=== PATIENT | female | born 1995 | race American Indian/Alaskan Native ===

== ENCOUNTER 2016-08-30 00:35 | Outpatient (CLI) | payer MEDICAID ==
[2016-08-30] MEDS ORDERED: LACTATED RINGERS 500 ML IV ONE (01:12)
[2016-08-30 01:46] LABS: Bacteria,Urine 1+ /HPF (Negative); Bilirubin,Urine NEG (Negative); Blood,Urine MOD (Negative); Ketones,Urine TR mg/dL (Negative); Leukocyte Esterase,Urine MOD (Negative); Mucus,Urine 3+ /HPF; Nitrite,Urine NEG (Negative); Urobilinogen,Urine < 2.0 mg/dL (<2.0)
[2016-08-30] MEDS ORDERED: ceFAZolin 2 GM in NACL 0.9% 100 ML IV ONE (02:15)
--- NOTE | 2016-08-30 02:39 | Ultrasound Report ---
FINAL REPORT EXAM: US OB \T\gt; = 14 WEEKS FETUS HISTORY: ptl COMPARISON: None available. TECHNIQUE: Several real-time grayscale and color Doppler images were obtained. FINDINGS: Single live IUP. Estimated gestational age 26 weeks 5 days. Estimated delivery date December 01, 2016. Estimated weight 902 grams. heart rate 165 beats per minute. position cephalic. Placenta location posterior. No placenta previa. The cervix is closed and measures 2.8 centimeters in length. Normal NINA 21.7 centimeters. Visualized heart, stomach, urinary bladder, kidneys, are grossly unremarkable. Three-vessel umbilical cord with abdominal insertion. BPD 6.9 centimeters 27 weeks 4 days. Head circumference 25.1 centimeters 27 weeks 2 days. Abdominal circumference 21.8 centimeters 26 weeks 2 days. Femoral length 4.7 centimeters 25 weeks 4 days. IMPRESSION: Single live IUP. Estimated gestational age 26 weeks 5 days. Estimated delivery date December 01, 2016. No or placental abnormality demonstrated.
[2016-08-30 03:12] VITALS: BP 130/65
== END 2016-08-30 03:15 | disposition home or self-care (01) ==
LOC: TRG 00:35
PROVIDERS: ATTEND Obstetrics & Gynecology
DX: O42.92 Full-term premature rupture of membranes, unspecified as to length of time between rupture and onset of labor (principal); Z3A.26 26 weeks gestation of pregnancy
CPT/HCPCS: 76805; 81001; 96360; 96365; J0690; J7120

== ENCOUNTER 2016-11-30 17:29 | Outpatient (CLI) | payer MEDICAID ==
[2016-11-30 18:03] VITALS: BP 120/75
== END 2016-11-30 18:52 | disposition home or self-care (01) ==
LOC: TRG 17:29
PROVIDERS: ATTEND Obstetrics & Gynecology
DX: O47.1 False labor at or after 37 completed weeks of gestation (principal); Z3A.37 37 weeks gestation of pregnancy

== ENCOUNTER 2016-12-15 13:48 | Inpatient (IN) | payer MEDICAID ==
[2016-12-15] MEDS ORDERED: LACTATED RINGERS 1,000 ML IV ONE (15:26)
[2016-12-15] MEDS ORDERED: PHENERGAN PO PRN (17:31)
[2016-12-15] MEDS ORDERED: STADOL IV PRN (17:31)
[2016-12-15] MEDS ORDERED: XYLOCAINE 2% INFILTRATI ONE (17:31)
[2016-12-15] MEDS ORDERED: BRETHINE SUB-Q PRN (17:31)
[2016-12-15] MEDS ORDERED: NARCAN 0.4 MG/1 ML IV PRN (17:31)
[2016-12-15] MEDS ORDERED: ZOFRAN IV PRN (17:31)
[2016-12-15] MEDS ORDERED: BRETHINE IVP PRN (17:31)
[2016-12-15] MEDS ORDERED: MINERAL OIL PO PRN (17:31)
[2016-12-15] MEDS ORDERED: ePHEDrine SULFATE IV PRN (17:31)
--- NOTE | 2016-12-15 17:39 | History and Physical Report ---
History of Present Illness Date of examination: 12/15/16 Date of admission: 12/15/16 13:49 Chief complaint: Pain and Leaking fluid History of present illness: Pt is a 21yo BF EDC 12/15/16; EGA 40 0/7 weeks presents to [facility] L&D complaining of decreased movement and leaking fluid since. BPP 12/10. NINA 10.5 She received care at [facility] since 19 weeks and course has been uncomplicated except for STD's ( Chlamydia and Trichomonas - both treated with Negative CAMERON's). records are available and GBS is Negative. Past History Past Medical History: no pertinent history Past Surgical History: no surgical history [employer] History: chlamydia (treated 07/23/16 with Negative CAMERON) Social history: no significant social history, single - Obstetrical History Expected Date of Delivery: 12/15/16 Actual Gestation: 40 Week(s) 0 Day(s) : 1 Medications and Allergies Allergies Allergy/AdvReac Type Severity Reaction Status Date / Time No Known Allergies Allergy Verified 08/30/16 01:14 Home Medications Medication Instructions Recorded Confirmed Last Taken Type Ferrous Sulfate [Feosol] 325 mg PO QDAY 08/30/16 08/30/16 08/29/16 16:00 History 1 Vit No.130/Iron/FA 1 tab PO DAILY 08/30/16 08/30/16 08/29/16 11:00 History [ Tablet] 1 Review of Systems All systems: negative - Vital Signs Vital signs: Vital Signs Pulse Pulse Ox 94 H 99 12/15/16 14:00 12/15/16 14:00 Temp Pulse Resp BP Pulse Ox 70 133/80 99 12/15/16 16:54 12/15/16 16:54 12/15/16 14:10 - Physical Exam Breasts: Positive: deferred Cardiovascular: Regular rate Lungs: Positive: Clear to auscultation Abdomen: Positive: normal appearance Genitourinary (Female): Positive: normal external genitalia Vagina: Positive: normal moisture Uterus: Positive: enlarged Extremities: Positive: normal - Obstetrical FHR: category 2 Uterine Contraction Monitor Mode: External Cervical Dilatation: 1.5 Cervical Effacement Percentage: 60 station: -3 Uterine Contraction Pattern: Irregular Uterine Tone Measurement Phase: Contraction Uterine Contraction Intensity: Mild Results All other labs normal. Ultrasound: report reviewed ([facility] /; NINA 10.5) Assessment and Plan - Patient Problems (1) 40 weeks gestation of Onset Date: 12/15/16 Current Visit: Yes Status: Acute Plan to address problem: A: IUP @ 40 0/7 weeks Non-reassuring surveillance P: Admit to L&D for pitocin induction of labor
[2016-12-15] MEDS: LACTATED RINGERS 1,000 ML IV SCH (18:00)
[2016-12-15] MEDS ORDERED: PITOCin/NS 20 UNIT/1000ML DRIP 20 UNITS/1,000 ML BAG IV SCH (18:00)
[2016-12-15] MEDS ORDERED: PITOCin/NS 30 UNIT/500ML 30 UNITS/500 ML BAG IV SCH ×2 (18:00)
[2016-12-15 19:49] LABS: Hematocrit 36.2 % (30.3-42.9); Hemoglobin 11.8 gm/dl (10.1-14.3); Mean Corpuscular HGB Conc 33 % (30-34); Mean Corpuscular Hemoglobin 32 pg (28-32); Mean Corpuscular Volume 97 fl (79-97); Platelet Count 248 K/mm3 (140-440); Red Blood Count 3.75 M/mm3 (3.65-5.03); Red Cell Distribution Width 14.7 % (13.2-15.2)
[2016-12-15] MEDS: SUBLIMAZE IV PRN ×2 (20:05→22:17)
[2016-12-16] MEDS: SUBLIMAZE IV PRN ×2 (00:25→02:52)
[2016-12-16] MEDS: LACTATED RINGERS 1,000 ML IV SCH ×2 (03:56→06:22)
[2016-12-16] MEDS ORDERED: ePHEDrine SULFATE ONE (04:32)
[2016-12-16] MEDS ORDERED: NARCAN 2 MG/2 ML IV PRN (05:13)
[2016-12-16] MEDS ORDERED: ePHEDrine SULFATE IV PRN (05:13)
--- NOTE | 2016-12-16 05:13 | Anesthesia Consultation ---
Anesthesia Consult and Med Hx Date of service: 12/16/16 - Airway Anesthetic Teeth Evaluation: Good ROM Head & Neck: Adequate Mental/Hyoid Distance: Adequate Mallampati Class: Class II Intubation Access Assessment: Good - Pulmonary Exam CTA: Yes - Cardiac Exam Cardiac Exam: No Murmur - Pre-Operative Health Status ASA Pre-Surgery Classification: ASA2 Proposed Anesthetic Plan: Epidural - Pulmonary Hx Asthma: Yes (childhood) COPD: No Hx Pneumonia: No - Cardiovascular System Hx Hypertension: No - Central Nervous System Hx Seizures: No Hx Psychiatric Problems: No - Endocrine Hx Renal Disease: No Hx End Stage Renal Disease: No Hx Hypothyroidism: No Hx Hyperthyroidism: No - Hematic Hx Anemia: Yes (Iron BID) Hx Sickle Cell Disease: No - Other Systems Hx Alcohol Use: No
[2016-12-16] MEDS ORDERED: fentaNYL-BUPIV 2 MCG/ML-0.125% 200 MCG/100 ML BAG EPIDURAL SCH (06:00)
--- NOTE | 2016-12-16 07:23 | Progress Note ---
Assessment and Plan A: 21 y/o at 40 wks -Cat 1 tracing at this time P: -IUPC and FSE placed -Will restart Pitocin in ~ 30 minutes -Will reassess options if patient's decelerations restart - Patient Problems (1) 40 weeks gestation of Onset Date: 12/15/16 Current Visit: Yes Status: Acute Subjective - Subjective Date of service: 12/16/16 Interval history: Patient seen and examined, stable. Currently category 1 with accelerations noted. However patient not on Pitocin. Cervical exam 2 Patient reports: loss of fluid (meconium-stained), contractions, no vaginal bleeding Objective - Vital Signs Vital Signs: Vital Signs - 12hr 12/15/16 12/15/16 12/15/16 19:24 19:29 19:34 Temperature Pulse Rate 86 82 92 H Respiratory Rate Blood Pressure O2 Sat by Pulse 98 98 97 Oximetry 12/15/16 12/15/16 12/15/16 19:39 19:44 19:49 Temperature Pulse Rate 87 81 83 Respiratory Rate Blood Pressure O2 Sat by Pulse 97 96 97 Oximetry 12/15/16 12/15/16 12/15/16 19:54 19:59 20:04 Temperature Pulse Rate 81 84 81 Respiratory Rate Blood Pressure O2 Sat by Pulse 98 98 98 Oximetry 12/15/16 12/15/16 12/15/16 20:05 20:09 20:14 Temperature Pulse Rate 87 87 Respiratory 18 Rate Blood Pressure O2 Sat by Pulse 96 94 Oximetry 12/15/16 12/15/16 12/15/16 20:15 20:19 20:24 Temperature Pulse Rate 87 90 92 H Respiratory Rate Blood Pressure O2 Sat by Pulse 94 96 96 Oximetry 12/15/16 12/15/16 12/15/16 20:29 20:34 20:39 Temperature Pulse Rate 98 H 86 81 Respiratory Rate Blood Pressure O2 Sat by Pulse 96 96 95 Oximetry 12/15/16 12/15/16 12/15/16 20:42 20:44 20:49 Temperature Pulse Rate 76 80 76 Respiratory Rate Blood Pressure O2 Sat by Pulse 94 96 95 Oximetry 12/15/16 12/15/16 12/15/16 20:54 20:59 21:04 Temperature Pulse Rate 76 75 72 Respiratory Rate Blood Pressure O2 Sat by Pulse 97 97 97 Oximetry 12/15/16 12/15/16 12/15/16 21:09 21:11 21:14 Temperature Pulse Rate 79 80 77 Respiratory Rate Blood Pressure O2 Sat by Pulse 95 94 98 Oximetry 12/15/16 12/15/16 12/15/16 21:19 21:24 21:29 Temperature Pulse Rate 107 H 79 81 Respiratory Rate Blood Pressure 141/94 O2 Sat by Pulse 99 99 99 Oximetry 12/15/16 12/15/16 12/15/16 21:34 21:39 21:44 Temperature Pulse Rate 85 77 74 Respiratory Rate Blood Pressure O2 Sat by Pulse 97 98 98 Oximetry 12/15/16 12/15/16 12/15/16 21:49 21:54 21:59 Temperature Pulse Rate 74 72 72 Respiratory Rate Blood Pressure O2 Sat by Pulse 100 99 99 Oximetry 12/15/16 12/15/16 12/15/16 22:04 22:09 22:19 Temperature Pulse Rate 75 72 72 Respiratory Rate Blood Pressure O2 Sat by Pulse 99 98 98 Oximetry 12/15/16 12/15/16 12/15/16 22:25 22:30 22:35 Temperature Pulse Rate 81 79 78 Respiratory Rate Blood Pressure O2 Sat by Pulse 94 97 95 Oximetry 12/15/16 12/15/16 12/15/16 22:40 23:30 23:32 Temperature Pulse Rate 76 74 76 Respiratory Rate Blood Pressure 142/82 O2 Sat by Pulse 96 98 Oximetry 12/15/16 12/15/16 12/15/16 23:34 23:35 23:40 Temperature 98.7 F Pulse Rate 74 74 79 Respiratory 18 Rate Blood Pressure 142/82 O2 Sat by Pulse 98 97 99 Oximetry 12/15/16 12/15/16 12/15/16 23:45 23:50 23:55 Temperature Pulse Rate 78 69 87 Respiratory Rate Blood Pressure O2 Sat by Pulse 98 98 87 Oximetry 12/16/16 12/16/16 12/16/16 00:00 00:05 00:10 Temperature Pulse Rate 95 H 76 74 Respiratory Rate Blood Pressure O2 Sat by Pulse 96 99 98 Oximetry 12/16/16 12/16/16 12/16/16 00:15 00:16 00:19 Temperature Pulse Rate 77 72 75 Respiratory Rate Blood Pressure O2 Sat by Pulse 98 94 98 Oximetry 12/16/16 12/16/16 12/16/16 00:25 00:28 00:30 Temperature Pulse Rate 78 83 78 Respiratory Rate Blood Pressure O2 Sat by Pulse 97 93 96 Oximetry 12/16/16 12/16/16 12/16/16 00:34 00:35 00:40 Temperature Pulse Rate 74 72 73 Respiratory Rate Blood Pressure O2 Sat by Pulse 94 94 92 Oximetry 12/16/16 12/16/16 12/16/16 00:45 00:50 00:55 Temperature Pulse Rate 73 73 72 Respiratory Rate Blood Pressure O2 Sat by Pulse 96 98 97 Oximetry 12/16/16 12/16/16 12/16/16 01:00 01:36 01:41 Temperature Pulse Rate 66 72 73 Respiratory Rate Blood Pressure O2 Sat by Pulse 98 97 98 Oximetry 12/16/16 12/16/16 12/16/16 01:46 01:51 01:56 Temperature Pulse Rate 71 78 66 Respiratory Rate Blood Pressure O2 Sat by Pulse 98 98 100 Oximetry 12/16/16 12/16/16 12/16/16 02:01 02:05 02:06 Temperature Pulse Rate 69 73 74 Respiratory Rate Blood Pressure O2 Sat by Pulse 99 93 100 Oximetry 12/16/16 12/16/16 12/16/16 02:11 02:16 02:21 Temperature Pulse Rate 64 65 64 Respiratory Rate Blood Pressure O2 Sat by Pulse 97 98 99 Oximetry 12/16/16 12/16/16 12/16/16 02:26 02:31 02:36 Temperature Pulse Rate 65 67 65 Respiratory Rate Blood Pressure O2 Sat by Pulse 99 98 99 Oximetry 12/16/16 12/16/16 12/16/16 02:41 02:48 02:52 Temperature Pulse Rate 62 69 Respiratory 20 Rate Blood Pressure O2 Sat by Pulse 99 99 Oximetry 12/16/16 12/16/16 12/16/16 02:53 02:58 03:03 Temperature Pulse Rate 65 70 66 Respiratory Rate Blood Pressure O2 Sat by Pulse 100 99 99 Oximetry 12/16/16 12/16/16 12/16/16 03:08 03:13 03:18 Temperature Pulse Rate 67 67 66 Respiratory Rate Blood Pressure O2 Sat by Pulse 99 100 100 Oximetry 12/16/16 12/16/16 12/16/16 03:23 03:28 03:33 Temperature Pulse Rate 70 72 71 Respiratory Rate Blood Pressure O2 Sat by Pulse 100 100 100 Oximetry 12/16/16 12/16/16 12/16/16 03:38 03:43 03:48 Temperature Pulse Rate 93 H 67 67 Respiratory Rate Blood Pressure O2 Sat by Pulse 99 99 99 Oximetry 12/16/16 12/16/16 12/16/16 03:53 03:58 04:04 Temperature Pulse Rate 100 H 69 96 H Respiratory Rate Blood Pressure O2 Sat by Pulse 100 99 99 Oximetry 12/16/16 12/16/16 12/16/16 04:09 04:14 04:19 Temperature Pulse Rate 70 89 87 Respiratory Rate Blood Pressure O2 Sat by Pulse 99 100 99 Oximetry 12/16/16 12/16/16 12/16/16 04:24 04:29 04:34 Temperature Pulse Rate 133 H 72 71 Respiratory Rate Blood Pressure O2 Sat by Pulse 98 99 99 Oximetry 12/16/16 12/16/16 12/16/16 04:39 04:44 04:47 Temperature Pulse Rate 91 H 96 H 90 Respiratory Rate Blood Pressure 128/71 O2 Sat by Pulse 99 97 Oximetry 12/16/16 12/16/16 12/16/16 04:49 04:50 04:52 Temperature Pulse Rate 92 H 84 79 Respiratory Rate Blood Pressure 118/71 119/65 O2 Sat by Pulse 99 Oximetry 12/16/16 12/16/16 12/16/16 04:54 04:56 04:58 Temperature Pulse Rate 77 75 77 Respiratory Rate Blood Pressure 115/66 126/71 119/71 O2 Sat by Pulse 97 Oximetry 12/16/16 12/16/16 12/16/16 04:59 05:00 05:02 Temperature Pulse Rate 78 80 75 Respiratory Rate Blood Pressure 118/70 127/71 O2 Sat by Pulse 97 Oximetry 12/16/16 12/16/16 12/16/16 05:04 05:06 05:08 Temperature Pulse Rate 76 80 103 H Respiratory Rate Blood Pressure 121/67 128/76 120/76 O2 Sat by Pulse 99 Oximetry 12/16/16 12/16/16 12/16/16 05:09 05:10 05:12 Temperature Pulse Rate 92 H 81 84 Respiratory Rate Blood Pressure 123/71 122/69 O2 Sat by Pulse 98 Oximetry 12/16/16 12/16/16 12/16/16 05:14 05:16 05:18 Temperature Pulse Rate 74 79 76 Respiratory Rate Blood Pressure 126/73 125/71 125/72 O2 Sat by Pulse 100 Oximetry 12/16/16 12/16/16 12/16/16 05:19 05:20 05:24 Temperature Pulse Rate 72 67 75 Respiratory Rate Blood Pressure 126/72 O2 Sat by Pulse 100 100 Oximetry 12/16/16 12/16/16 12/16/16 05:27 05:29 05:32 Temperature Pulse Rate 77 81 73 Respiratory Rate Blood Pressure 132/65 127/71 O2 Sat by Pulse 100 Oximetry 12/16/16 12/16/16 12/16/16 05:34 05:36 05:39 Temperature Pulse Rate 68 71 67 Respiratory Rate Blood Pressure 123/65 O2 Sat by Pulse 100 100 Oximetry 12/16/16 12/16/16 12/16/16 05:41 05:44 05:49 Temperature Pulse Rate 77 63 74 Respiratory Rate Blood Pressure 115/66 O2 Sat by Pulse 100 99 Oximetry 12/16/16 12/16/16 12/16/16 05:54 05:58 05:59 Temperature Pulse Rate 75 65 74 Respiratory Rate Blood Pressure 120/65 O2 Sat by Pulse 100 100 Oximetry 12/16/16 12/16/16 12/16/16 06:04 06:09 06:12 Temperature Pulse Rate 69 76 78 Respiratory Rate Blood Pressure 108/61 O2 Sat by Pulse 99 99 Oximetry 12/16/16 12/16/16 12/16/16 06:14 06:19 06:24 Temperature Pulse Rate 84 66 67 Respiratory Rate Blood Pressure O2 Sat by Pulse 99 99 99 Oximetry 12/16/16 12/16/16 12/16/16 06:28 06:29 06:34 Temperature Pulse Rate 75 72 85 Respiratory Rate Blood Pressure 129/75 O2 Sat by Pulse 100 99 Oximetry 12/16/16 12/16/16 12/16/16 06:39 06:43 06:44 Temperature Pulse Rate 70 68 69 Respiratory Rate Blood Pressure 129/72 O2 Sat by Pulse 100 100 Oximetry 12/16/16 12/16/16 12/16/16 06:49 06:54 06:57 Temperature Pulse Rate 71 74 72 Respiratory Rate Blood Pressure 126/74 O2 Sat by Pulse 99 99 Oximetry 12/16/16 12/16/16 12/16/16 06:59 07:04 07:09 Temperature Pulse Rate 71 72 78 Respiratory Rate Blood Pressure O2 Sat by Pulse 99 99 99 Oximetry 12/16/16 12/16/16 07:12 07:14 Temperature Pulse Rate 75 86 Respiratory Rate Blood Pressure 129/75 O2 Sat by Pulse 99 Oximetry - Exam FHR: category 1 Cervical Dilatation: 6 Cervical Effacement Percentage: 40 station: -2 - Labs Labs: Abnormal Labs 12/15/16 19:30 WBC 17.0 H Laboratory Results - last 24 hr 12/15/16 12/15/16 19:30 19:30 WBC 17.0 H RBC 3.75 Hgb 11.8 Hct 36.2 MCV 97 MCH 32 MCHC 33 RDW 14.7 Plt Count 248 Blood Type O POSITIVE Antibody Screen Negative
[2016-12-16] MEDS ORDERED: BICITRA ONE (08:03)
[2016-12-16] MEDS ORDERED: PEPCID IV ONE (08:03)
[2016-12-16] MEDS ORDERED: REGLAN ONE (08:03)
[2016-12-16] MEDS ORDERED: NARCAN 0.4 MG/1 ML IV PRN ×2 (08:10→09:23)
[2016-12-16] MEDS ORDERED: BENADRYL IV PRN ×2 (08:10→08:23)
[2016-12-16] MEDS ORDERED: ZOFRAN IV PRN (08:10)
[2016-12-16] MEDS ORDERED: DILAUDID IV PRN (08:10)
--- NOTE | 2016-12-16 08:10 | Anesthesia Day of Surgery ---
Anesthesia Day of Surgery - Day of Surgery Patient Examined: Yes Patient H&P Reviewed: Yes Patient is NPO: Yes
[2016-12-16] MEDS ORDERED: TORADOL IV PRN ×2 (08:12→11:17)
--- NOTE | 2016-12-16 08:18 | Ultrasound Report ---
OB LIMITED INDICATION: well being, NINA. COMPARISON: 08/30/2016 TECHNIQUE: Transabdominal grayscale ultrasound with Doppler interrogation. Gestation: Gonzalez Position: Cephalic Amniotic Fluid: WNL (7-24 cm) NINA = 10.5 cm Heart Rate: 156 BPM
--- NOTE | 2016-12-16 08:18 | Ultrasound Report ---
BIOPHYSICAL PROFILE: INDICATION: well being, BPP. COMPARISON: None similar. TECHNIQUE: Transabdominal ultrasound with Doppler interrogation. 2 - breathing movements 2 - movements 2 - posture and tone 2 - Qualitative amniotic fluid volume 8 - TOTAL SCORE OF POSSIBLE 8 Heart Rate (bpm) 156
[2016-12-16] MEDS ORDERED: MORPHINE IV PRN ×2 (08:25)
[2016-12-16] MEDS ORDERED: XYLOCAINE MPF 2% ONE (08:40)
[2016-12-16] MEDS ORDERED: MORPHINE ONE ×2 (08:42)
[2016-12-16] MEDS ORDERED: ZOFRAN ONE (08:51)
[2016-12-16] MEDS ORDERED: WATER FOR IRRIG STERILE IR ONE (08:59)
[2016-12-16] MEDS ORDERED: NACL 0.9% IR ONE (08:59)
[2016-12-16] MEDS ORDERED: SODIUM CHLORIDE FLUSH SYRINGE 10 ML IV NR ×2 (09:00→10:00)
--- NOTE | 2016-12-16 09:17 | Event Note ---
Date: 12/16/16 Called and notified of patient's two-minute deceleration on start of Pitocin, no cervical change on exam. Pitocin was discontinued and patient consented for
--- NOTE | 2016-12-16 09:22 | Operative Report ---
Operative Report Operative Report: DATE: 12/16/2016 PREOPERATIVE DIAGNOSIS: 31-year-old at 41 weeks gestation, category 2 tracing, arrest of descent, arrest of dilation POSTOP DIAGNOSIS: As above NAME OF PROCEDURE: Primary low transverse section SURGEON: SOHA BURR MD RUG CUTTER: [] ANESTHESIA: Epidural EBL: 700 mL PATHOLOGY SPECIMEN: None URINE OUTPUT: 100 mL FINDINGS: Male infant in cephalic presentation, time of was 8:38 AM, weight was 7 lbs. 10 oz. or 3455 g, Apgars 8 and 9, normal uterus tubes and ovaries bilaterally DESCRIPTION OF PROCEDURE: After informed consent, patient taken to the operating room where she was placed in the supine position. She was then Prepped and draped in sterile fashion. A Pfannenstiel incision was performed 2 cm above the pubic symphysis, was carried through to the underlying rectus fascia which was scored in the midline the fascial incision was then extended laterally with use of Dimas scissors. Anterior leaf of the fascia was grasped with [place]'s elevated dissected sharply and bluntly off the underlying rectus in a similar fashion inferiorly was grasped elevated and dissected sharply and bluntly AND RECTUS. The peritoneal cavity was entered without difficulty with good visualization of the bladder. Bladder flap was created without difficulty ; hysterotomy incision was made with meconium stained amniotic fluid noted. Hysterotomy incision was extended laterally with use of the fingers manually infant in cephalic presentation was delivered atraumatically in usual manner. The placenta was delivered manually intact. The uterus was exteriorized cleared of all clots and debris; the incision was then closed in a running locked fashion with 0 Vicryl on a CTX using the same suture was used to imbricate the initial layer. Ulujek-cv-nrsku stitches were used to control bleeding. The uterus was returned to the peritoneal cavity, peritoneal edges were grasped with Allis and hemostats elevated copious irrigation was used to clear the gutters of all clots and debris. Tisseel was applied over the hysterotomy incision as a means to prevent future adhesions. The peritoneal layer was closed in a running fashion with 3-0 Vicryl; rectus was reapproximated with a single ydpctn-cc-pgljh stitch. Fascia was then closed in a running fashion with 0 Vicryl and tied in the opposite side. Subcutaneous layer was reapproximated with interrupted kykxnk-fk-sflgp stitches using 3-0 Vicryl and the skin was closed in a subcuticular manner with 4-0 Vicryl. Patient tolerated the procedure well and lap and instrument counts were correct 2 she did receive 2 g of Ancef prior to the procedure she is transferred to PACU in stable condition.
[2016-12-16] MEDS ORDERED: TYLENOL PO PRN (09:23)
[2016-12-16] MEDS ORDERED: LANSINOH TP PRN (09:23)
[2016-12-16] MEDS ORDERED: ANUCORT-HC PR PRN (09:23)
[2016-12-16] MEDS ORDERED: TUCKS PAD TP PRN (09:23)
[2016-12-16] MEDS ORDERED: SENOKOT PO PRN (09:23)
[2016-12-16] MEDS ORDERED: MILK OF MAGNESIA PO PRN (09:23)
[2016-12-16] MEDS ORDERED: PITOCin/NS 20 UNIT/1000ML DRIP 20 UNITS/1,000 ML BAG IV SCH (10:00)
--- NOTE | 2016-12-16 11:32 | Post Anesthesia Evaluation ---
- Post Anesthesia Evaluation Patient Participated: Yes Airway Patent: Yes Stable Respiratory Function: Yes Nausea/Vomiting: No Temp > 96.8F: Yes Pain Manageable: Yes Adequeate Hydration: Yes Anesthesia Complications: No Block Receding Appropriately: Yes Patient on Ventilator: No
[2016-12-16] MEDS ORDERED: BENADRYL PO PRN (14:14)
[2016-12-16] MEDS: D5LR 1,000 ML IV SCH (15:26)
[2016-12-16 23:32] LABS: Hematocrit 30.4 % (30.3-42.9); Hemoglobin 10.2 gm/dl (10.1-14.3)
[2016-12-17] MEDS: PERCOCET 5/325 PO PRN ×2 (02:09→08:03)
[2016-12-17] MEDS ORDERED: BOOSTRIX IM ONE (06:10)
--- NOTE | 2016-12-17 07:05 | Progress Note ---
Assessment and Plan POD # 1 s/p Primary LTCS -Doing well P: -Continue routine post-op care -Anticipate D/C in 24-48 hrs - Patient Problems (1) Status post repeat low transverse section Current Visit: Yes Status: Acute (2) 40 weeks gestation of Onset Date: 12/15/16 Current Visit: Yes Status: Acute Subjective - Subjective Date of service: 12/17/16 Principal diagnosis: POD # 1 Interval history: Patient seen and examined, stable and doing well. No new complaints or issues Patient reports: appetite normal, voiding normally, pain well controlled, flatus , no dizzy ambulation, no nauseated : doing well Objective - Vital Signs Latest vital signs: Vital Signs Temp Pulse Resp BP Pulse Ox 12/17/16 00:55 99.3 F 108 H 18 126/73 12/16/16 22:52 99.6 F 114 H 18 127/69 12/16/16 20:35 99.8 F H 108 H 20 131/77 12/16/16 17:07 98.1 F 76 20 120/50 12/16/16 11:44 20 12/16/16 10:30 99.5 F 86 18 142/70 12/16/16 10:14 98.6 F 12/16/16 10:07 98.7 F 12/16/16 10:00 75 7 L 122/72 99 12/16/16 09:45 84 29 H 117/63 98 12/16/16 09:42 98.2 F 12/16/16 09:35 84 13 106/61 96 12/16/16 09:30 79 14 106/61 97 12/16/16 09:25 77 15 103/54 98 12/16/16 09:22 86 12 98 12/16/16 09:20 98.4 F 12/16/16 07:59 87 99 12/16/16 07:57 100 H 114/81 12/16/16 07:54 79 100 12/16/16 07:49 70 99 12/16/16 07:44 73 96 12/16/16 07:42 75 116/73 12/16/16 07:41 98.7 F 77 18 120/76 12/16/16 07:39 77 95 12/16/16 07:34 79 96 12/16/16 07:29 83 97 12/16/16 07:28 75 120/76 12/16/16 07:24 92 H 98 12/16/16 07:19 79 97 12/16/16 07:14 86 99 12/16/16 07:12 75 129/75 12/16/16 07:09 78 99 12/16/16 07:04 72 99 Intake and Output 12/16/16 12/17/16 12/17/16 22:59 06:59 14:59 Intake Total 735 Output Total 1600 400 Balance -865 -400 Intake: IV 375 D5lr 1,000 ml @ 125 mls/ 125 hr IV DIRECT MICHELE Rx#: [id number] Left Hand 250 Oral 240 Intake, Free Water 120 Output: Urine 1600 400 Indwelling Catheter 1600 300 Void 100 Other: Total, Intake Amount 120 Total, Output Amount 1200 100 Voiding Method Toilet # Voids Indwelling Catheter 1 - Exam Abdomen: Present: normal appearance, soft. Absent: distention, tenderness, guarding Uterus: Present: fundal height below umbilicus. Absent: tenderness Extremities: Present: normal Incision: Present: dressed
--- NOTE | 2016-12-17 08:31 | Progress Note ---
Subjective Date of service: 12/17/16 Principal diagnosis: POD # 1 Interval history: 1st POD after Patient is in the bed, comfortable. Pain is well controlled with pain meds. Ambulated well. No residual neurological deficit. No pruritus. No anesthesia complications Objective - Constitutional Vitals: Vital Signs - 12hr 12/16/16 12/16/16 12/17/16 20:35 22:52 00:55 Temperature 99.8 F H 99.6 F 99.3 F Pulse Rate 108 H 114 H 108 H Respiratory 20 18 18 Rate Blood Pressure 131/77 127/69 126/73 12/17/16 12/17/16 12/17/16 05:00 08:00 08:03 Temperature 98.9 F 98.5 F Pulse Rate 108 H 95 H Respiratory 20 18 20 Rate Blood Pressure 125/72 119/69 - Labs CBC & Chem 7: 12/16/16 23:16
[2016-12-17] MEDS: MYLICON PO PRN ×2 (08:57→22:16)
[2016-12-17] MEDS: MOTRIN PO PRN (15:19)
[2016-12-17] MEDS: D5LR 1,000 ML IV SCH (22:38)
[2016-12-17] MEDS ORDERED: ZOFRAN IV PRN (23:04)
--- NOTE | 2016-12-18 07:54 | Progress Note ---
Assessment and Plan - Patient Problems (1) 40 weeks gestation of Onset Date: 12/15/16 Current Visit: Yes Status: Resolved (2) Status post primary low transverse section Onset Date: 12/18/16 Current Visit: Yes Status: Resolved Plan to address problem: A: S/P C Section - POD #2 Doing well P: Will advance diet today Anticipate discharge tomorrow Subjective - Subjective Date of service: 12/18/16 Principal diagnosis: POD # 2 Interval history: Pt is feeling well without complaints. Tolerating a liquid diet without nausea or vomiting. Patient reports: appetite normal, voiding normally, ambulating normally, no flatus : doing well Objective - Vital Signs Latest vital signs: Vital Signs Temp Pulse Resp BP 12/18/16 00:00 98.6 F 88 20 136/73 12/17/16 16:44 98.3 F 97 H 18 140/70 12/17/16 08:03 20 12/17/16 08:00 98.5 F 95 H 18 119/69 Intake and Output 12/17/16 12/18/16 12/18/16 22:59 06:59 14:59 Intake Total 240 Balance 240 Intake: Oral 240 Other: Total, Intake Amount 240 # Voids Void 1 - Exam Breasts: Present: deferred Cardiovascular: Present: Regular rate Lungs: Present: Clear to auscultation Abdomen: Present: normal appearance, soft Uterus: Present: normal, firm, fundal height below umbilicus Extremities: Present: normal Incision: Present: normal, dry, intact, dressed
--- NOTE | 2016-12-18 07:55 | Discharge Summary ---
Providers - Providers Date of Admission: 12/15/16 13:49 Date of discharge: 12/19/16 Attending physician: RANJIT PALAFOX Primary care physician: RANJIT PALAFOX Hospitalization Reason for admission: induction of labor, IUP at term Delivery: Procedure: section, primary low transverse Episiotomy: none Incision: normal, dry, intact Other procedures: none complications: none Discharge diagnosis: IUP at term delivered [place] baby: male Hospital course: Pt is a 21yo BF EDC 12/15/16; EGA 40 0/7 weeks who presented to [facility] L&D complaining of decreased movement and leaking fluid. She was admitted and started on pitocin for induction of labor, however she didn't tolerate labor and thus was delivered by C Section. Post operative course was unremarkable, and by POD #2 she was tolerating a liquid diet without nausea or vomiting, ambulating and voiding without difficulty, and thus scheduled for discharge to home on POD #3 in stable condition. Condition at discharge: Good Disposition: DC-01 TO HOME OR SELFCARE - Discharge Diagnoses (1) 40 weeks gestation of Status: Resolved (2) Status post primary low transverse section Status: Resolved Plan - Discharge Medications Prescriptions: Ibuprofen [Motrin 600 MG tab] 600 mg PO Q8H PRN #30 tablet PRN Reason: Pain Multivitamin with Iron [Multivitamins with Iron] 1 each PO DAILY #30 tablet oxyCODONE /ACETAMINOPHEN [Percocet 5/325] 1 tab PO Q6HR PRN #30 tablet PRN Reason: Pain - Provider Discharge Summary Activity: routine, no sex for 6 weeks, no heavy lifting 4 weeks, no strenuous exercise Diet: routine Instructions: routine Additional instructions: [] Smoking cessation referral if applicable(refer to patient education folder for contact #) [] Refer to [facility] Booklet Call your doctor immediately for: * Fever > 100.5 * Heavy vaginal bleeding ( >1 pad per hour) * Severe persistent headache * Shortness of breath * Reddened, hot, painful area to leg or breast * Drainage or odor from incision. * Keep incision clean and dry at all times and follow doctor's instructions regarding bathing/showering - Follow up plan Follow up: RANJIT PALAFOX MD [Primary Care Provider] - 14 Days
[2016-12-18] MEDS: PERCOCET 5/325 PO PRN ×2 (08:20→14:14)
[2016-12-18] MEDS: PRENATAL VITAMIN PO SCH ×2 (10:10→12:40)
[2016-12-18] MEDS: FEOSOL PO SCH ×2 (10:10→12:40)
[2016-12-18] MEDS: MOTRIN PO PRN (14:17)
[2016-12-19] MEDS: PERCOCET 5/325 PO PRN (05:51)
[2016-12-19] MEDS: MOTRIN PO PRN (05:51)
[2016-12-19] MEDS: FEOSOL PO SCH (10:28)
[2016-12-19] MEDS: PRENATAL VITAMIN PO SCH (10:29)
[2016-12-19 10:44] VITALS: BP 123/74
== END 2016-12-19 12:50 | disposition home or self-care (01) | DRG 766 ==
LOC: TRG 13:48 → LD 13:49 → TRG 13:49 → OB 12-16 10:50
PROVIDERS: ADMIT Obstetrics & Gynecology; ATTEND Obstetrics & Gynecology
PROC: 10D00Z1 Extraction of Products of Conception, Low, Open Approach (ICD-10-PCS; principal; 2016-12-16)
PROC: 10H07YZ Insertion of Other Device into Products of Conception, Via Natural or Artificial Opening (ICD-10-PCS; 2016-12-16)
DX: O36.8130 Decreased fetal movements, third trimester, not applicable or unspecified (principal); O62.1 Secondary uterine inertia; O76 Abnormality in fetal heart rate and rhythm complicating labor and delivery; O99.52 Diseases of the respiratory system complicating childbirth; J45.909 Unspecified asthma, uncomplicated; O99.02 Anemia complicating childbirth; D64.9 Anemia, unspecified; Z3A.40 40 weeks gestation of pregnancy; Z37.0 Single live birth; O77.0 Labor and delivery complicated by meconium in amniotic fluid; O62.0 Primary inadequate contractions
CPT/HCPCS: 36415; 76815; 76819; 85014; 85018; 85027; 86850; 86900; 86901; 90471; 90715; 99211; A6250; C9250; G0463; J1885; J2270; J2405; J2590; J2765; J3010; J7120; J7121

== ENCOUNTER 2019-04-19 10:18 | Emergency (ER) | payer SELFPAY ==
[2019-04-19 10:55] VITALS: BP 124/78
[2019-04-19] MEDS ORDERED: SODIUM CHLORIDE 0.9% 1000 ML 1,000 ML IV ONE (13:19)
[2019-04-19] MEDS ORDERED: FAMOTIDINE 20 MG/2 ML INJ IV ONE (13:19)
[2019-04-19] MEDS ORDERED: DICYCLOMINE 20 MG TAB PO ONE (13:19)
[2019-04-19] MEDS ORDERED: ONDANSETRON 4 MG/2 ML INJ IV ONE (13:19)
[2019-04-19 14:17] LABS: Basophils # (Auto) 0.1 K/mm3 (0.0-0.1); Basophils % (Auto) 0.9 % (0.0-1.8); Eosinophils # (Auto) 0.1 K/mm3 (0.0-0.4); Eosinophils % (Auto) 0.9 % (0.0-4.3); Hematocrit 37.2 % (30.3-42.9); Hemoglobin 12.4 gm/dl (10.1-14.3); Lymphocytes # (Auto) 2.7 K/mm3 (1.2-5.4); Lymphocytes % (Auto) 38.6 % (13.4-35.0); Mean Corpuscular HGB Conc 33 % (30-34); Mean Corpuscular Volume 91 fl (79-97); Monocytes # (Auto) 0.4 K/mm3 (0.0-0.8); Platelet Count 322 K/mm3 (140-440); Red Cell Distribution Width 16.8 % (13.2-15.2)
[2019-04-19 14:31] LABS: Alanine Aminotransferase 12 units/L (7-56); Albumin 4.4 g/dL (3.9-5); BUN/Creatinine Ratio 16; Blood Urea Nitrogen 11 mg/dL (7-17); Calcium 8.7 mg/dL (8.4-10.2); Hemolysis Index 30
[2019-04-19 15:29] LABS: Bacteria,Urine 1+ /HPF (Negative); Bilirubin,Urine NEG (Negative); Blood,Urine NEG (Negative); Color,Urine Yellow (Yellow); HCG Qualitative,Urine Negative (Negative); Mucus,Urine 3+ /HPF; Protein,Urine <15 mg/dL mg/dL (Negative); Urobilinogen,Urine < 2.0 mg/dL (<2.0)
--- NOTE | 2019-04-19 16:36 | Cat Scan Report ---
CT abdomen pelvis w con INDICATION: abd pain. TECHNIQUE: All CT scans at this location are performed using the following dose modulation technique: Automated exposure control. Helical slices were obtained through the abdomen and pelvis. 100 cc of Omnipaque 30 0 is administered. COMPARISON: None available. FINDINGS: Abdomen: No acute abnormality is seen in the lower chest. The liver, spleen, pancreas, adrenal glands , and left kidney are unremarkable. 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 There is no obstruction or i nflammation. There are no abnormal fluid collections. 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 The appendix is unremarkable. There is no inflammatory c hange. There are no abnormal fluid collections. There is no adenopathy. On review of bone windows, no acute osseous abnormalities are seen. IMPRESSION: 1. There is no obstruction, inflammation, or free air. There are no abnormal fluid collections. 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 Signer Name: Soy Barrientos MD Signed: 04/19/2019 4:31 PM Workstation Name: [id number]
--- NOTE | 2019-04-19 17:06 | Emergency Department Report ---
ED Abdominal Pain HPI - General Chief Complaint: Nausea/Vomiting/Diarrhea Stated Complaint: N/V Time Seen by Provider: 04/19/19 13:18 Source: family Mode of arrival: Ambulatory Limitations: No Limitations - History of Present Illness Initial Comments: This is a 23-year-old female nontoxic, well nourished in appearance, no acute signs of distress presents to the ED with c/o of nausea and vomiting and abdominal pain 1 week. Patient describes vomiting as food content and yellow gastric acid. Patient describes abdominal pain as cramping and aching with level of 8/10 diffuse. Patient denies chest pain, short of breath, fever, chills, headache, stiff neck, numbness or tingling. Patient denies any diarrhea or constipation. Patient denies any recent travels. Patient denies any drug allergies or significant past medical history. MD Complaint: abdominal pain -: week(s) (1) Location: diffuse Radiation: none Migration to: no migration Severity: mild Severity scale (0 -10): 8 Quality: aching Consistency: constant Improves With: nothing Worsens With: nothing Associated Symptoms: nausea, vomiting. denies: diarrhea, fever, chills, constipation, dysuria, hematemesis, hematochezia, melena, hematuria, anorexia, syncope - Related Data Home Medications Medication Instructions Recorded Confirmed Last Taken Ferrous Sulfate [Feosol] 325 mg PO QDAY 08/30/16 12/15/16 12/14/16 22:00 Vit No.130/Iron/Folic 1 tab PO DAILY 08/30/16 12/15/16 12/15/16 08:00 [ Tablet] Previous Rx's Medication Instructions Recorded Last Taken Type Ibuprofen [Motrin 600 MG tab] 600 mg PO Q8H PRN #30 tablet 12/16/16 Unknown Rx Multivitamin with Iron 1 each PO DAILY #30 tablet 12/16/16 Unknown Rx [Multivitamins with Iron] oxyCODONE /ACETAMINOPHEN [Percocet 1 tab PO Q6HR PRN #30 tablet 12/16/16 Unknown Rx 5/325] Acetaminophen/Codeine [Tylenol 1 tab PO Q6H PRN #12 tab 04/19/19 Unknown Rx /Codeine # 3 tab] Ondansetron [Zofran Odt] 4 mg PO Q8HR PRN #20 tab.rapdis 04/19/19 Unknown Rx Allergies Allergy/AdvReac Type Severity Reaction Status Date / Time No Known Allergies Allergy Verified 08/30/16 01:14 ED Review of Systems ROS: Stated complaint: N/V Other details as noted in HPI Constitutional: denies: chills, fever Eyes: denies: eye pain, eye discharge, vision change ENT: denies: ear pain, throat pain Respiratory: denies: cough, shortness of breath, wheezing Cardiovascular: denies: chest pain, palpitations Endocrine: no symptoms reported Gastrointestinal: abdominal pain, nausea, vomiting. denies: diarrhea, constipation Genitourinary: denies: urgency, dysuria, discharge Musculoskeletal: denies: back pain, joint swelling, arthralgia Skin: denies: rash, lesions Neurological: denies: headache, weakness, paresthesias Psychiatric: denies: anxiety, depression Hematological/Lymphatic: denies: easy bleeding, easy bruising ED Past Medical Hx - Past Medical History Previous Medical History?: Yes Hx Hypertension: No Hx Congestive Heart Failure: No Hx Diabetes: No Hx Deep Vein Thrombosis: No Hx Renal Disease: No Hx Sickle Cell Disease: No Hx Seizures: No Hx Asthma: Yes (childhood) Hx COPD: No Hx HIV: No Additional medical history: eczema - Social History Smoking Status: Never Smoker Substance Use Type: None - Medications Home Medications: Home Medications Medication Instructions Recorded Confirmed Last Taken Type Ferrous Sulfate [Feosol] 325 mg PO QDAY 08/30/16 12/15/16 12/14/16 22:00 History Vit No.130/Iron/Folic 1 tab PO DAILY 08/30/16 12/15/16 12/15/16 08:00 History [ Tablet] Ibuprofen [Motrin 600 MG tab] 600 mg PO Q8H PRN #30 tablet 12/16/16 Unknown Rx Multivitamin with Iron 1 each PO DAILY #30 tablet 12/16/16 Unknown Rx [Multivitamins with Iron] oxyCODONE /ACETAMINOPHEN [Percocet 1 tab PO Q6HR PRN #30 tablet 12/16/16 Unkn own Rx 5/325] Acetaminophen/Codeine [Tylenol 1 tab PO Q6H PRN #12 tab 04/19/19 Unknown Rx /Codeine # 3 tab] Ondansetron [Zofran Odt] 4 mg PO Q8HR PRN #20 tab.rapdis 04/19/19 Unknown Rx ED Physical Exam - General Limitations: No Limitations General appearance: alert, in no apparent distress - Head Head exam: Present: atraumatic, normocephalic - Eye Eye exam: Present: normal appearance - Neck Neck exam: Present: normal inspection, full ROM. Absent: tenderness, meningi smus, lymphadenopathy - Respiratory Respiratory exam: Present: normal lung sounds bilaterally. Absent: respiratory distress, wheezes, rales, rhonchi, stridor, chest wall tenderness, accessory muscle use, decreased breath sounds, prolonged expiratory - Cardiovascular Cardiovascular Exam: Present: regular rate, normal rhythm, normal heart sounds. Absent: bradycardia, tachycardia, irregular rhythm, systolic murmur, diastolic murmur, rubs, gallop - GI/Abdominal GI/Abdominal exam: Present: soft, tenderness (diffuse), normal bowel sounds. Absent: distended, guarding, rebound, rigid, diminished bowel sounds - Extremities Exam Extremities exam: Present: normal inspection, full ROM, normal capillary refill. Absent: tenderness - Back Exam Back exam: Present: normal inspection, full ROM. Absent: tenderness, CVA tenderness (R), CVA tenderness (L), muscle spasm, paraspinal tenderness, vertebral tenderness, rash noted - Neurological Exam Neurological exam: Present: alert, oriented X3, normal gait - Psychiatric Psychiatric exam: Present: normal affect, normal mood - Skin Skin exam: Present: warm, dry, intact, normal color. Absent: rash ED Course Vital Signs 04/19/19 10:53 Temperature 98.0 F Pulse Rate 84 Respiratory 18 Rate Blood Pressure 124/78 O2 Sat by Pulse 100 Oximetry - Reevaluation(s) Reevaluation #1: 04/19/19 17:00 Patient is speaking in full sentences with no signs of distress noted. ED Medical Decision Making - Lab Data Result diagrams: 04/19/19 14:00 04/19/19 14:00 - Medical Decision Making This is a 23-year-old female that presents with abdominal pain and n/v. Patient is stable and was examined by me. Negative signs of symptoms of appendicitis. Labs obtained. UA obtained. CT of abdomen obtained and dictated by the radiologist. Patient is notified of the report with no questions noted by the patient. Vital signs are stable prior to discharge. Patient received medical treatment in the ED which patient stated symptoms has resovled and subsided. Was instructed note to operate any machinery due to possible drowsiness and stated someone will drive the patient home. A by mouth challenge has been obtained and patient tolerated well with no nausea vomiting. Patient was also instructed to Follow-up with a primary care doctor in 3-5 days or if symptoms worsen and continue return to emergency room as soon as possible. At time of di scharge, the patient does not seem toxic or ill in appearance. No acute signs of distress noted. Patient agrees to discharge treatment plan of care. No further questions noted by the patient. Critical care attestation.: If time is entered above; I have spent that time in minutes in the direct care of this critically ill patient, excluding procedure time. 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 Do not operate any machinery while taking Tylenol with codeine as this may cause drowsiness. Prescriptions: Acetaminophen/Codeine [Tylenol /Codeine # 3 tab] 1 tab PO Q6H PRN #12 tab PRN Reason: Pain , Severe (7-10) Ondansetron [Zofran Odt] 4 mg PO Q8HR PRN #20 tab.rapdis PRN Reason: Nausea Referrals: PRIMARY CAREMD [Primary Care Provider] - 3-5 Days JAE FAITH MD [Staff Physician] - 3-5 Days [facility] [Outside] - 3-5 Days [facility] [Provider Group] - 3-5 Days Forms: Work/School Release Form(ED)
== END 2019-04-19 17:32 | disposition home or self-care (01) ==
LOC: ED 10:18
DX: R10.84 Generalized abdominal pain (principal); R11.2 Nausea with vomiting, unspecified; J45.909 Unspecified asthma, uncomplicated
CPT/HCPCS: 36415; 74177; 80053; 81001; 81025; 83690; 85025; 96361; 96374; 96375; 99284; J2405; J7030; Q9967

== ENCOUNTER 2021-09-26 09:50 | Emergency (ER) | payer MEDICAID ==
--- NOTE | 2021-09-26 11:00 | Event Note ---
ED Screening Note ED Screening Note: 26-year-old female is in a wheelchair. She will not get up to walk to back for exam. She has surgery scheduled on 531 she says at an outpatient clinic for her abdominal hernia. She states however the pain has become so bad she comes to the ER. Her abdomen is soft and nontender on limited exam. She states that she takes Protonix at home for she has had ulcers before She is constricted and will not give much other medical information. Vital signs noted to be normal by triage. EMR reviewed there is no recent imaging/creatinine here at [facility]. This initial assessment/diagnostic orders/clinical plan/treatment(s) is/are subject to change based on patients health status, clinical progression and re- assessment by fellow clinical providers in the ED. Further treatment and workup at subsequent clinical providers discretion. Patient/guardian urged not to elope from the ED as their condition may be serious if not clinically assessed and managed. Initial orders include: Labs ordered. Will need imaging. HEAVEN Kidd for joon
[2021-09-26 11:33] VITALS: BP 129/79
[2021-09-26 11:44] LABS: Basophils # (Auto) 0.1 K/mm3 (0.0-0.1); Basophils % (Auto) 0.7 % (0.0-1.8); Eosinophils % (Auto) 0.6 % (0.0-4.3); Hematocrit 36.6 % (30.3-42.9); Hemoglobin 12.2 gm/dl (10.1-14.3); Lymphocytes # (Auto) 1.6 K/mm3 (1.2-5.4); Lymphocytes % (Auto) 21.9 % (13.4-35.0); Mean Corpuscular HGB Conc 33 % (30-34); Mean Corpuscular Volume 91 fl (79-97); Monocytes # (Auto) 0.3 K/mm3 (0.0-0.8); Monocytes % (Auto) 4.7 % (0.0-7.3); Platelet Count 315 K/mm3 (140-440); Red Blood Count 4.01 M/mm3 (3.65-5.03); Red Cell Distribution Width 17.5 % (13.2-15.2)
[2021-09-26 12:32] LABS: Alanine Aminotransferase 18 units/L (7-56); Albumin 4.6 g/dL (3.9-5); Blood Urea Nitrogen 9 mg/dL (7-17); Hemolysis Index 2
[2021-09-26 12:35] LABS: BUN/Creatinine Ratio 15; Bilirubin,Direct < 0.2 mg/dL (0-0.2)
== END 2021-09-26 17:31 | disposition left against medical advice (07) ==
LOC: ED 09:50
DX: R10.9 Unspecified abdominal pain (principal); Z53.21 Procedure and treatment not carried out due to patient leaving prior to being seen by health care provider
CPT/HCPCS: 36415; 80048; 80076; 83690; 84702; 85025